=== PATIENT | female | born 1945 | race Caucasian/White ===

== ENCOUNTER 2017-06-16 12:37 | Day surgery (SDC) | payer MEDICARE, MEDICAID ==
[2017-06-15 10:03] VITALS: BMI 26.6
[2017-06-16] MEDS ORDERED: Fentanyl 250 MCG/5 ML VIAL ONE (14:11)
[2017-06-16] MEDS ORDERED: Oxymetazoline HCl 0.05% ( 15 ML ) ONE ×2 (14:11→14:23)
[2017-06-16] MEDS ORDERED: Lidocaine 1% w/Epinephrine 1:200K 30 ML VIAL ONE (14:23)
[2017-06-16 14:28] LABS: Hemoglobin 13.7 g/dL (12.0-16.0); Platelet Count 264 thou/uL (130-400)
[2017-06-16] MEDS ORDERED: methylPREDNISolone Acetate 40 mg/ml Vial ONE (14:34)
[2017-06-16 14:48] LABS: Anion Gap 13 mmol/L (10-20); BUN (Urea Nitrogen) 13 mg/dL (9.8-20.1); Calc. Creatinine Clearance 55 mL/min (70-130); Calcium 9.5 mg/dL (7.8-10.44); Carbon Dioxide 30 mmol/L (23-31); Chloride 99 mmol/L (98-107); Estimated GFR-MDRD 59; Glucose 154 mg/dL (83-110); Potassium 3.5 mmol/L (3.5-5.1); Sodium 138 mmol/L (136-145)
[2017-06-16] MEDS ORDERED: Glycopyrrolate 0.2 MG/ML 5 ML SYRINGE ONE (15:11)
[2017-06-16] MEDS ORDERED: PHENYLEPHRINE-NS 100 MCG/ML 10 ML SYRINGE ONE (15:11)
[2017-06-16] MEDS ORDERED: Propofol 200 MG/20 ML VIAL ONE (15:11)
[2017-06-16] MEDS ORDERED: Lidocaine 1% PF 5 ML VIAL ONE (15:11)
[2017-06-16] MEDS ORDERED: Ondansetron HCl/PF 4 MG/2 ML Vial ONE (15:11)
[2017-06-16] MEDS ORDERED: ePHEDrine/0.9% NaCl/PF SYRINGE 50 mg/10 ml ONE (15:11)
--- NOTE | 2017-06-16 16:31 | OP ---
PREOPERATIVE DIAGNOSES: Chronic sinusitis, chronic facial pain, chronic cough and hypertrophic infer ior turbinates. POSTOPERATIVE DIAGNOSES: Chronic sinusitis, chronic facial pain, chronic cough, and hypertrophic inf erior turbinates. PROCEDURES PERFORMED: 1. Bilateral nasal endoscopy with maxillary antrostomy removal of tissue. 2. Bilateral nasal endoscopy with frontal sinusotomy. 3. Bilateral nasal endoscopy with total ethmoidectomy. 4. Bilateral nasal endoscopy with sphenoidotomy. 5. Bilateral nasal endoscopy with submucosal resection of inferior turbinates. FINDINGS: The patient had purulence on both ethmoid, sphenoid and maxillary sinus. ANESTHESIA: General, endotracheal. PROCEDURE IN DETAIL: After consent was obtained, the patient was identified, brought to the operatin g room, and placed on the operating table in supine position. General endotracheal anesthesia was ob tained. The patient was prepped and draped for nasal surgery. Topical decongestant was achieved wit h 1% lidocaine with 1:100,000 epinephrine infiltrated in the lateral nasal wall and inferior turbinat es. We then placed Afrin-saturated Cottonoid pledgets in the intranasal cavity and waited an appropr iate period of time prior to their removal. The C-arm was placed in the operating room, and the sphe noid and frontal sinus locations were verified. Initially we addressed the sphenoid sinuses. The na tural ostia of the sphenoid sinus was identified under fluoroscopic visualization, and a guidewire wa s passed. We then passed a 5-mm dilating balloon catheter over the guidewire and dilated the natural os of the sphenoid sinus. We increased the amount of pressure to 8 mmHg. We documented that radiog raphically, turned our attention to the contralateral side, and used an identical technique. Again, a guidewire was placed under fluoroscopic visualization over a sphenoid introducing catheter, and the n the balloon dilating catheter was placed over the guidewire through the natural os of the sphenoid sinus, which was subsequently enlarged, and documented radiographically. We then used the frontal si nus introducing catheter and identified safe passage of the guidewire into the left frontal sinus. T he dilating balloon catheter was then placed over the guidewire, and the natural os of the frontal si nus recess was enlarged to a pressure of 8. We then performed identical technique on the contralater al side. We then proceeded with the more traditional aspect of the surgery, in which we removed the uncinate process by outfracturing along its insertion and using the microdebrider. We then entered th e anterior face of the ethmoid bulla and performed an anterior ethmoidectomy, with the limits of diss ection being the medial orbital wall, base of skull region, and insertion of the middle turbinate. We then addressed the auger nasi air cell system and were able to extend up to some of the shrouds of m ucosa and fractured bone that had been outfractured with the balloon catheter, making a relatively co mmon cavity with no obvious mucosal lacerations or exposed bone. We were then able to turn our atten tion to the contralateral side, and using identical technique, again a maxillary antrostomy was perfo rmed, followed by total ethmoidectomy with the microdebrider. We then outfractured the inferior turb inates and underwent multiple passes of the coblation wand in a hemostatic fashion at a setting of 6 and 4. We placed small, trimmed, Rice splints in the ethmoid cavity to act as spacers. We awakened t he patient who was extubated and taken to the recovery room where the patient remained in stable cond ition prior to discharge home.
== END 2017-06-16 16:58 | disposition home or self-care (01) ==
LOC: SDC 12:37
PROVIDERS: ATTEND Specialist
PROC: 09TV8ZZ Resection of Left Ethmoid Sinus, Via Natural or Artificial Opening Endoscopic (ICD-10-PCS; principal; 2017-06-16)
PROC: 09TU8ZZ Resection of Right Ethmoid Sinus, Via Natural or Artificial Opening Endoscopic (ICD-10-PCS; 2017-06-16)
PROC: 099T8ZZ Drainage of Left Frontal Sinus, Via Natural or Artificial Opening Endoscopic (ICD-10-PCS; 2017-06-16)
PROC: 099W8ZZ Drainage of Right Sphenoid Sinus, Via Natural or Artificial Opening Endoscopic (ICD-10-PCS; 2017-06-16)
PROC: 099X8ZZ Drainage of Left Sphenoid Sinus, Via Natural or Artificial Opening Endoscopic (ICD-10-PCS; 2017-06-16)
PROC: 099S8ZZ Drainage of Right Frontal Sinus, Via Natural or Artificial Opening Endoscopic (ICD-10-PCS; 2017-06-16)
PROC: 09BR8ZZ Excision of Left Maxillary Sinus, Via Natural or Artificial Opening Endoscopic (ICD-10-PCS; 2017-06-16)
PROC: 09BQ8ZZ Excision of Right Maxillary Sinus, Via Natural or Artificial Opening Endoscopic (ICD-10-PCS; 2017-06-16)
PROC: 09TL8ZZ Resection of Nasal Turbinate, Via Natural or Artificial Opening Endoscopic (ICD-10-PCS; 2017-06-16)
DX: J32.9 Chronic sinusitis, unspecified (principal); J34.3 Hypertrophy of nasal turbinates; R05 Cough; F17.210 Nicotine dependence, cigarettes, uncomplicated; E78.00 Pure hypercholesterolemia, unspecified; J45.909 Unspecified asthma, uncomplicated; K21.9 Gastro-esophageal reflux disease without esophagitis; E11.9 Type 2 diabetes mellitus without complications; Z88.0 Allergy status to penicillin; Z88.5 Allergy status to narcotic agent; Z79.83 Long term (current) use of bisphosphonates; Z79.82 Long term (current) use of aspirin; Z79.4 Long term (current) use of insulin; Z79.899 Other long term (current) drug therapy
CPT/HCPCS: 36415; 80048; 85014; 85018; 85049; 93005; 93010; J1030; J2001; J2405; J2704; J3010